=== PATIENT | female | born 1980 | race Caucasian/White ===

== ENCOUNTER → 2017-05-22 | Outpatient (REF) | payer OTHER | LOC: M SFHCWAGY 08:43 | PROVIDERS: ATTEND Nurse Practitioner Women's Health | DX: Z12.4 Encounter for screening for malignant neoplasm of cervix (principal) ==

== ENCOUNTER → 2018-12-17 | Outpatient (REF) | payer OTHER | LOC: M LAB LCGH 12-17 13:46 | PROVIDERS: ATTEND Surgery | DX: K82.8 Other specified diseases of gallbladder (principal) ==

== ENCOUNTER → 2019-10-04 | Outpatient (REF) | payer OTHER | LOC: M SFHCWAGY 17:38 | PROVIDERS: ATTEND Nurse Practitioner Women's Health | DX: Z12.4 Encounter for screening for malignant neoplasm of cervix (principal) ==

== ENCOUNTER → 2020-10-21 | Outpatient (CLI) | payer BC, OTHER ==
--- NOTE | 2020-10-21 10:51 | REP ---
INDICATION: ACUTE BRONCHITIS, UNSPECIFIED. COMPARISON: No comparison chest x-ray. TECHNIQUE: Two views.. FINDINGS: The lungs are well inflated and free of infiltrate. The pleural angles are sharp. The heart size is normal. Pulmonary vasculature is not increased. No significant bony abnormality is seen. There is a mild pectus. IMPRESSION: Negative chest x-ray. <Electronically signed by Samson Pitt > 10/21/20 [id number]
== END ==
LOC: M RAD 10:05
PROVIDERS: ATTEND Physician Assistant
DX: J20.9 Acute bronchitis, unspecified (principal); R06.02 Shortness of breath

== ENCOUNTER → 2020-12-13 | Outpatient (CLI) | payer BC ==
--- NOTE | 2020-12-13 16:36 | REPMRS ---
Patient History The patient states she had a clinical breast exam in 11/2020. Family history of prostate cancer at age 58 in father. Taking hormonal contraceptives for 20 years. Patient states no breast complaints today. Patient has signed MRS History Sheet. Digital Woman Screen Mammo: December 13, 2020 - Exam #: [id number] Bilateral CC and MLO view(s) were taken. Technologist: Yanira Zaidi, Technologist Prior study comparison: July 27, 2019, bilateral digital mammo screening bilat, performed at [facility]. FINDINGS: The breast tissue is almost entirely fat. Screening. Digital screening (2D) mammography was performed bilaterally in the CC and MLO projections. Additionally, breast tomosynthesis (3D mammography) was performed bilaterally in the CC and MLO projections. Todays exam was compared to the prior exam/exams. By history, the patient has no complaints of a palpable breast abnormality or other significant breast complaints. The breasts are unchanged in size and shape. There are no krystle-soft tissue densities or spiculated masses. There is no internal architectural distortion. There are no suspicious krystle-calcific clusters. Skin thickening or nipple retraction is not present. IMPRESSION: BI-RADS Category 2- Benign Findings. There is no evidence of malignant alteration of the breasts. Followup examination recommended in one year. The Volpara volumetric breast density category is A, the breasts are almost entirely fatty. This mammogram was read with the assistance of [employer],an FDA approved computer aided detection system for mammography. The lifetime Tyrer-Cuzick score is 11.6 % Negative x-ray reports should not delay surgical consultation if a dominant or clinically suspicious mass is present. Not all breast cancers can be identified by mammography. Therefore, we recommend that you continue to perform regular breast self-examination and physical examination and then promptly contact your physician of any concerns or changes. Adenosis and dense breasts may obscure an underlying neoplasm. Assessment: BI-RADS/ACR category 2 mammogram. Benign Findings. Recommendation Routine screening mammogram of both breasts in 1 year. Electronically Signed By: Karson Marti DO 12/13/20 1700
== END ==
LOC: M WHC 07:47
PROVIDERS: ATTEND Nurse Practitioner Women's Health
DX: Z12.31 Encounter for screening mammogram for malignant neoplasm of breast (principal)

== ENCOUNTER → 2020-12-13 | Outpatient (REF) | payer BC, OTHER | LOC: M SFHCWAGY 10:17 | PROVIDERS: ATTEND Nurse Practitioner Women's Health | DX: Z12.4 Encounter for screening for malignant neoplasm of cervix (principal) | CPT/HCPCS: 87624; G0123 ==

== ENCOUNTER → 2022-05-14 | Outpatient (REF) | payer OTHER | LOC: M PLALAB 15:09 | PROVIDERS: ATTEND Nurse Practitioner Family | DX: Z12.4 Encounter for screening for malignant neoplasm of cervix (principal); R87.610 Atypical squamous cells of undetermined significance on cytologic smear of cervix (ASC-US) | CPT/HCPCS: 87624; G0123 ==

== ENCOUNTER → 2022-05-14 | Outpatient (CLI) | payer BC, OTHER | LOC: M WHC 09:17 | PROVIDERS: ATTEND Nurse Practitioner Family | DX: Z12.31 Encounter for screening mammogram for malignant neoplasm of breast (principal) ==

== ENCOUNTER → 2022-05-14 | Outpatient (CLI) | payer BC, OTHER ==
[2022-05-14 14:55] LABS: HEMOGLOBIN A1c 4.9 % (4.0-6.0)
[2022-05-14 15:23] LABS: THYROID STIMULATING HORMONE 1.472 uIU/ML (0.55-4.78)
[2022-05-14 15:24] LABS: FREE T4 0.88 NG/DL (0.89-1.76); PROLACTIN 4.64 NG/ML
== END ==
LOC: M LAB 10:45 → M PLALAB 10:45
PROVIDERS: ATTEND Nurse Practitioner Family
DX: L68.0 Hirsutism (principal)

== ENCOUNTER → 2022-10-15 | Outpatient (REF) | payer OTHER | LOC: M SFHCWAGY 15:09 | PROVIDERS: ATTEND Nurse Practitioner Family | DX: Z11.3 Encounter for screening for infections with a predominantly sexual mode of transmission (principal) ==

== ENCOUNTER 2022-12-11 08:40 | Day surgery (SDC) | payer BC, OTHER ==
[~2022-12-11] VITALS: Ht 177.8 cm; Wt 100.2 kg
[~2022-12-11 08:40] MED LIST: LIDOCAINE 2% 100MG/5ML SDV (FOR ANES.) As Ordered ONE; LINZ145C PO; MILI1TAB PO; NS 1,000 ML IV ONE; SEMA0.257 SC; VITMTA PO; propofoL 200 MG/20 ML VIAL As Ordered ONE
[2022-12-11 11:06] VITALS: TEMP 97.5
[2022-12-11 11:27] VITALS: BP 119/66; O2SAT 100
== END 2022-12-11 11:30 | disposition home or self-care (01) ==
LOC: M OPP 08:40
PROVIDERS: ATTEND Internal Medicine Gastroenterology
DX: K63.5 Polyp of colon (principal); K59.00 Constipation, unspecified; Z79.85 Long-term (current) use of injectable non-insulin antidiabetic drugs; Z79.899 Other long term (current) drug therapy

== ENCOUNTER → 2023-01-22 | Outpatient (CLI) | payer BC, OTHER ==
[~2023-01-22] MED LIST changes: -LIDOCAINE 2% 100MG/5ML SDV (FOR ANES.) As Ordered ONE; -NS 1,000 ML IV ONE; -propofoL 200 MG/20 ML VIAL As Ordered ONE
== END ==
LOC: M CARPUL 12:55
PROVIDERS: ATTEND Nurse Practitioner Family
DX: R06.02 Shortness of breath (principal)

== ENCOUNTER → 2023-02-03 | Outpatient (CLI) | payer BC, OTHER ==
[~2023-02-03] MED LIST changes: +METHACHOLINE KIT INH ONE
== END ==
LOC: M CARPUL 08:13
PROVIDERS: ATTEND Nurse Practitioner Family
DX: R06.02 Shortness of breath (principal)
CPT/HCPCS: 94070; J7674

== ENCOUNTER → 2023-03-06 | Outpatient (CLI) | payer BC, OTHER ==
[~2023-03-06] MED LIST changes: -METHACHOLINE KIT INH ONE
== END ==
LOC: M RAD 11:49
PROVIDERS: ATTEND Nurse Practitioner Family
DX: R06.02 Shortness of breath (principal)
CPT/HCPCS: 71046; 78582; A9540; A9567

== ENCOUNTER → 2023-07-15 | Outpatient (REF) | payer BC, OTHER | LOC: M SFHCWAGY 15:44 | PROVIDERS: ATTEND Nurse Practitioner Family | DX: Z12.4 Encounter for screening for malignant neoplasm of cervix (principal) | CPT/HCPCS: 87624; G0123 ==

== ENCOUNTER → 2023-07-15 | Outpatient (CLI) | payer BC, OTHER | LOC: M WHC 08:35 | PROVIDERS: ATTEND Nurse Practitioner Family | DX: Z12.31 Encounter for screening mammogram for malignant neoplasm of breast (principal) ==

== ENCOUNTER → 2024-08-25 | Outpatient (CLI) | payer BC | LOC: M WHC 14:06 | PROVIDERS: ATTEND Internal Medicine | DX: Z12.31 Encounter for screening mammogram for malignant neoplasm of breast (principal) ==

== ENCOUNTER → 2024-10-04 | Outpatient (CLI) | payer BC | LOC: M WUC 11:56 | PROVIDERS: ATTEND Nurse Practitioner Family | DX: R05.9 Cough, unspecified (principal) ==

== ENCOUNTER → 2025-02-20 | Outpatient (REF) | payer BC | LOC: M PLALAB 12:55 | PROVIDERS: ATTEND Nurse Practitioner Family | DX: Z01.419 Encounter for gynecological examination (general) (routine) without abnormal findings (principal); Z53.9 Procedure and treatment not carried out, unspecified reason ==

== ENCOUNTER → 2025-02-20 | Outpatient (REF) | payer BC | LOC: M SFHCWAGY 15:15 | PROVIDERS: ATTEND Nurse Practitioner Family | DX: Z01.419 Encounter for gynecological examination (general) (routine) without abnormal findings (principal) ==